=== PATIENT | male | born 1940 ===

== ENCOUNTER → 2017-05-12 | Outpatient (CLI) | payer OTHER, BC | END | disposition home or self-care (01) | LOC: C.LABSPEC 10:43 | PROVIDERS: ATTEND Family Medicine | DX: M54.9 Dorsalgia, unspecified (principal) ==

== ENCOUNTER → 2017-11-10 | Outpatient (CLI) | payer OTHER, BC | END | disposition home or self-care (01) | LOC: C.LABSPEC 18:15 | PROVIDERS: ATTEND Family Medicine | DX: R53.83 Other fatigue (principal) ==